=== PATIENT | female | born 1970 | race Caucasian/White ===

== ENCOUNTER → 2017-10-26 | Outpatient (CLI) | payer OTHER ==
[2017-10-26 14:53] LABS: BASO % 1 % (0-3); EOS # 0.1 x10^3/uL (0.0-0.7); EOS % 1 % (0-3); HEMATOCRIT 41.9 % (36.0-47.0); HEMOGLOBIN 14.4 g/dL (12.0-15.5); LYMPH # 2.4 x10^3/uL (1.0-4.8); LYMPH % 32 % (24-48); MEAN CORPUSCULAR HEMOGLOBIN 31 pg (25-35); MEAN CORPUSCULAR HGB CONC 34 g/dL (31-37); MEAN CORPUSCULAR VOLUME 91 fL (79-100); MONO # 0.5 x10^3/uL (0.0-1.1); MONO % 7 % (0-9); NEUT # 4.4 x10^3uL (1.8-7.7); NEUT % 59 % (31-73); PLATELET COUNT 254 x10^3/uL (140-400); RED BLOOD COUNT 4.63 x10^6/uL (3.50-5.40); RED CELL DISTRIBUTION WIDTH 14.2 % (11.5-14.5); WHITE BLOOD COUNT 7.4 x10^3/uL (4.0-11.0)
[2017-10-26 15:03] LABS: ALBUMIN/GLOBULIN RATIO 1.1 (1.0-1.7); CALCIUM 9.4 mg/dL (8.5-10.1); CREATININE 0.8 mg/dL (0.6-1.0); GFR 76.2; POTASSIUM 3.9 mmol/L (3.5-5.1); TOTAL BILIRUBIN 0.3 mg/dL (0.2-1.0); TOTAL PROTEIN 7.7 g/dL (6.4-8.2)
[2017-10-27 02:09] LABS: FSH 50.6 mIU/mL (.)
[2017-10-27 18:45] LABS: THYROID STIM HORMONE (TSH) 3.573 uIU/mL (0.358-3.740)
[2017-10-27 19:09] LABS: HCV ANTIBODY <0.1 s/co ratio (0.0-0.9); HEP A IGM ABDY Negative (Negative)
== END | disposition home or self-care (01) ==
LOC: LAB 13:13
PROVIDERS: ATTEND Family Medicine
DX: Z00.01 Encounter for general adult medical examination with abnormal findings (principal); N91.2 Amenorrhea, unspecified; R79.89 Other specified abnormal findings of blood chemistry
CPT/HCPCS: 36415; 80053; 80061; 80074; 83001; 84443; 85025; 86701; 86702; 86703; 87535

== ENCOUNTER 2018-04-08 23:15 | Emergency (ER) | payer OTHER ==
[~2018-04-08] VITALS: Ht 165.1 cm; Wt 78.3 kg
[2018-04-09] MEDS ORDERED: ONDANSETRON ODT 4 MG TAB.RAPDIS PO ONE
[2018-04-09] MEDS ORDERED: THIAMINE 100 MG TABLET. PO ONE
[2018-04-09] MEDS ORDERED: IV NORMAL SALINE 1,000ML 1,000 ML IV ONE ×2
[2018-04-09] MEDS ORDERED: DIPHTH,PERTUSS(ACELL),TET TOX 0.5 ML DISP.SYRIN. VAX IM ONE (00:15)
--- NOTE | 2018-04-09 01:21 | RAD ---
INDICATION: Status post fall COMPARISON: None. TECHNIQUE: Axial CT images obtained through the head and cervical spine without intravenous contrast. Coronal and sagittal reformats processed of cervical spine. One or more of the following individualized dose reduction techniques were utilized for this examination: 1. Automated exposure control; 2. Adjustment of the mA and/or kV according to patient size; 3. Use of iterative reconstruction technique. FINDINGS: Head: No intracranial hemorrhage. No midline shift. Basal cisterns patents. Ventricles and sulci are within normal limits. No acute osseous abnormality. Orbits and paranasal sinuses unremarkable. Cervical: No evidence of malalignment. Prevertebral soft tissues not thickened. Patient motion limits evaluation but a definite fracture not seen IMPRESSION: 1. No acute intracranial hemorrhage. 2. Mild scattered foci low attenuation of white matter. Nonspecific but can be sequela of migraine or small vessel ischemic disease. 3. Motion limits evaluation of the cervical spine but a definite fracture line not seen. Electronically signed by: Adrian Jean MD (04/09/2018 1:17 AM) [facility]
[2018-04-09 01:22] LABS: CALCIUM 9.4 mg/dL (8.5-10.1); CREATININE 0.8 mg/dL (0.6-1.0); GFR 76.2; POTASSIUM 3.1 mmol/L (3.5-5.1)
--- NOTE | 2018-04-09 01:28 | PHYS DOC ---
Adult General Chief Complaint Chief Complaint: ALCOHOL INTOXICATION HPI HPI 47-year-old female brought in by EMS for evaluation after a fall while intoxicated. Patient was drinking excessively this evening became intoxicated and ended up on the ground. Specifics of her suspected fall are unknown. Patient is not aware of the details because she was more intoxicated when it happened. Denies headache or neck pain however she does have some alcohol on her breath. Patient is alert and communicative. She has no specific complaints Review of Systems Review of Systems Constitutional: Denies fever or chills [] Eyes: Denies change in visual acuity, redness, or eye pain [] HENT: Denies nasal congestion or sore throat [] Respiratory: Denies cough or shortness of breath [] Cardiovascular: No additional information not addressed in HPI [] GI: Denies abdominal pain, nausea, vomiting, bloody stools or diarrhea [] : Denies dysuria or hematuria [] Musculoskeletal: Denies back pain or joint pain [] Integument: Denies rash or skin lesions [] Neurologic: Denies headache, focal weakness or sensory changes [] Endocrine: Denies polyuria or polydipsia [] All other systems were reviewed and found to be within normal limits, except as documented in this note. Current Medications Current Medications Current Medications Medications (Trade) Dose Ordered Sig/Storm Start Time Stop Time Status Last Admin Dose Admin Diphtheria/ Tetanus/Acell Pertussis (Boostrix) 0.5 ml ONCE ONCE 04/09/18 00:15 04/09/18 00:16 DC 04/09/18 01:08 0.5 ML Ondansetron HCl (Zofran Odt) 4 mg 1X ONCE 04/09/18 00:00 04/09/18 00:01 DC 04/08/18 23:58 4 MG Potassium Chloride (Klor-Con) 40 meq 1X ONCE 04/09/18 01:30 04/09/18 01:31 UNV Sodium Chloride 1,000 ml @ 1,000 mls/hr 1X ONCE 04/09/18 00:00 04/09/18 00:59 DC 04/09/18 00:00 1,000 MLS/HR Thiamine HCl (Vitamin B-1) 100 mg 1X ONCE 04/09/18 00:00 04/09/18 00:01 DC 04/08/18 23:58 100 MG Allergies Allergies Allergies Coded Allergies Type Severity Reaction Last Updated Verified No Known Drug Allergies 04/08/18 No Physical Exam Physical Exam Patient mildly intoxicated. Normocephalic atraumatic. Nontender C-spine with normal apparently painless range of motion and no step off or bony abnormality. Mucous membranes very mildly dry. Clear lungs regular rate and rhythm with mild tachycardia benign abdomen no CVA tenderness normal extremities and a nonfocal neurologic exam Constitutional: Well developed, well nourished, no acute distress, non-toxic appearance. [] HENT: Normocephalic, atraumatic, bilateral external ears normal, oropharynx moist, no oral exudates, nose normal. [] Eyes: PERRLA, EOMI, conjunctiva normal, no discharge. [] Neck: Normal range of motion, no tenderness, supple, no stridor. [] Cardiovascular:Heart rate regular rhythm, no murmur [] Lungs & Thorax: Bilateral breath sounds clear to auscultation [] Abdomen: Bowel sounds normal, soft, no tenderness, no masses, no pulsatile masses. [] Skin: Warm, dry, no erythema, no rash. [] Back: No tenderness, no CVA tenderness. [] Extremities: No tenderness, no cyanosis, no clubbing, ROM intact, no edema. [] Neurologic: Alert and oriented X 3, not to date, normal motor function, normal sensory function, no focal deficits noted. [] Psychologic: Affect normal, judgement normal, mood normal. [] Current Patient Data Lab Results Laboratory Tests Test 04/09/18 00:54 Sodium Level 145 mmol/L (136-145) Potassium Level 3.1 mmol/L (3.5-5.1) L Chloride Level 106 mmol/L (98-107) Carbon Dioxide Level 26 mmol/L (21-32) Anion Gap 13 (6-14) Blood Urea Nitrogen 7 mg/dL (7-20) Creatinine 0.8 mg/dL (0.6-1.0) Estimated GFR (Cockcroft-Gault) 76.2 Glucose Level 109 mg/dL (70-99) H Calcium Level 9.4 mg/dL (8.5-10.1) EKG EKG [] Radiology/Procedures Radiology/Procedures [] Course & Med Decision Making Course & Med Decision Making Pertinent Labs and Imaging studies reviewed. (See chart for details) Patient intoxicated mildly. Mild tachycardia resolved after IV fluid hydration. Workup unremarkable. No further evaluation or treatment indicated. Patient is accompanied home by her significant other who is not intoxicated. She is were not to drive or operate machinery. She agrees with outpatient follow-up and strict return precautions given [] Dragon Disclaimer Dragon Disclaimer This electronic medical record was generated, in whole or in part, using a voice recognition dictation system. Departure Departure: Impression: Primary Impression: Alcohol intoxication Additional Impressions: Minor head injury Abrasion Tetanus-diphtheria vaccination administered at current visit Disposition: HOME, SELF-CARE Condition: IMPROVED Referrals: ALICIA CHAMBERLAIN MD (PCP) Patient Instructions: Alcohol Intoxication Additional Instructions: You have been intoxicated tonight. He fell and suffered an abrasion. Her tetanus is been updated. A CAT scan of your head and neck was unremarkable. You been hydrated with IV fluids and your laboratory unremarkable. Follow-up with your doctor tomorrow and return immediately for new severe worsening symptoms. If you choose to drink alcohol drink only in moderation which is generally considered to be 2 or fever drinks a day Problem Qualifiers ALICE PATINO MD April 09, 2018 01:28
[2018-04-09] MEDS ORDERED: POTASSIUM CHLORIDE 20 MEQ TABLET.ER. PO ONE (02:00)
[2018-04-09 02:05] VITALS: BP 130/73
== END 2018-04-09 02:11 | disposition home or self-care (01) ==
LOC: ER 23:15
DX: F10.129 Alcohol abuse with intoxication, unspecified (principal); S00.91XA Abrasion of unspecified part of head, initial encounter; W19.XXXA Unspecified fall, initial encounter; Y93.89 Activity, other specified; Y99.8 Other external cause status; Y92.89 Other specified places as the place of occurrence of the external cause
CPT/HCPCS: 36415; 70450; 72125; 80048; 90471; 90715; 99285; Q0162; J7030

== ENCOUNTER → 2021-04-15 | Outpatient (CLI) | payer OTHER ==
--- NOTE | 2021-04-15 13:04 | RAD ---
EXAM: Pelvis and right hip, 3 views. HISTORY: Acute pain. COMPARISON: None. FINDINGS: A frontal view of the pelvis and 2 views of the right hip are obtained. There is no fractur e, dislocation or subluxation. The femoral heads are normal in configuration. The sacroiliac joints a nd pubis symphysis are intact. IMPRESSION: No acute osseous finding. Electronically signed by: Danielle Campos MD (04/15/2021 1:01 PM) [id number]
== END ==
LOC: RAD 12:33
PROVIDERS: ATTEND Family Medicine
DX: M25.551 Pain in right hip (principal)
CPT/HCPCS: 73502